=== PATIENT | female | born 1945 | race Caucasian/White ===

== ENCOUNTER 2022-06-24 09:03 | Outpatient (CLI) | payer OTHER, SELFPAY ==
--- NOTE | 2022-06-24 13:26 | W.ANESCHARGE ---
Anesthesia Charges Start Date/Time Anesthesia Start Date: 06/24/22 Anesthesia Start Time: 11:50 Stop Date/Time Anesthesia Stop Date: 06/24/22 Anesthesia Stop Time: 12:15 Summary Emergency: No Extremes of Age: Over 72-CPT [id number]
--- NOTE | 2022-06-24 14:12 | P.ANES_ITS ---
Anesthesia Charges Start Date/Time Anesthesia Start Date: 06/24/22 Anesthesia Start Time: 11:50 Stop Date/Time Anesthesia Stop Date: 06/24/22 Anesthesia Stop Time: 12:15 Summary Emergency: No Extremes of Age: Over 72-CPT [id number]
== END 2022-06-24 09:04 | disposition home or self-care (01) ==
PROVIDERS: PCP Family Medicine; Visit Provider Internal Medicine Gastroenterology
DX: R19.5 Other fecal abnormalities (principal); K63.5 Polyp of colon; K57.30 Diverticulosis of large intestine without perforation or abscess without bleeding
CPT/HCPCS: 00811; 45385; 88305; 99100; J2704